=== PATIENT | female | born 1975 | race Caucasian/White ===

== ENCOUNTER 2016-09-19 10:21 | Emergency (ER) | payer MEDICAID ==
[2016-09-19 10:39] VITALS: BP 109/74
[2016-09-19] MEDS ORDERED: Proparacaine 0.5% Ophth Soln 15 ML Bottle EYELF ONE (10:59)
--- NOTE | 2016-09-19 11:16 | EDM.PDOC ---
[id number] EYE IS SORE Time Seen by Provider: 09/19/16 10:55 Source: Reports: Patient History Limitations: Reports: No limitations - History of Present Illness INITIAL COMMENTS - FREE TEXT/NARRATIVE: 41-year-old female with a left eye injury. She was doing something with her son ,s clothes when she accidentally struck her left eye with her thumb. This happened about an hour ago and she is very uncomfortable, can't open her left eye. No other injury complaints. She has an appointment at 2 PM [facility] but was too uncomfortable to wait. 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: - Infectious Disease History Infectious Disease History: Reports: Chicken pox Social & Family History - Tobacco Use Smoking Status *Q: Never Smoker Second Hand Smoke Exposure: No - Caffeine Use Caffeine Use: Reports: Coffee - Recreational Drug Use Recreational Drug Use: No ED ROS GENERAL - Review of Systems Review Of Systems: See Below Constitutional: Denies: fever, chills Respiratory: Denies: Shortness of Breath GI/Abdominal: Reports: No symptoms Skin: Reports: no symptoms Neurological: Reports: No Symptoms Psychiatric: Reports: No symptoms ED EXAM GENERAL W FULL EYE - Physical Exam Exam: See Below Exam Limited By: No limitations General Appearance: alert, mild distress Eyelids: bilateral: normal appearance Cornea Exam: left: corneal abrasion (Large corneal abrasion seen under fluorescein stain) Course - Vital Signs Last Recorded V/S: Last Vital Signs Temp 97.3 F 09/19/16 10:53 Pulse 75 09/19/16 10:53 Resp 14 09/19/16 10:53 BP 109/74 09/19/16 10:53 Pulse Ox 96 09/19/16 10:53 - Orders/Labs/Meds Meds: Medications Discontinued Medications Generic Name Dose Route Start Last Admin Trade Name Glenys PRN Reason Stop Dose Admin Proparacaine HCl 1 ml 09/19/16 10:59 09/19/16 11:26 Proparacaine 0.5% Ophth Soln EYELF 09/19/16 11:00 1 ml ONETIME ONE Administration - Re-Assessments/Exams Free Text/Narrative Re-Assessment/Exam: 09/19/16 11:18 The left eye was anesthetized with proparacaine which gave marked pain relief. Fluorescein staining revealed a large left corneal abrasion. Patient was sent directly over the eye clinic. Departure - Departure Time of Disposition: 11:27 Disposition: Home, Self-Care 01 Condition: good Clinical Impression: Corneal abrasion Qualifiers: Encounter type: initial encounter Laterality: left Qualified Code(s): S05.02XA - Injury of conjunctiva and corneal abrasion without foreign body, left eye, initial encounter Instructions: Corneal Abrasion, [id number] Referrals: Zohra Mijares CNM [Primary Care Provider] - Forms: ED Department Discharge Care Plan Goals: Go directly over to [facility] to finish your examination and treatment.
== END 2016-09-19 11:28 | disposition home or self-care (01) ==
LOC: JP.ED 10:21
DX: S05.02XA Injury of conjunctiva and corneal abrasion without foreign body, left eye, initial encounter (principal); Z79.899 Other long term (current) drug therapy; W22.8XXA Striking against or struck by other objects, initial encounter
CPT/HCPCS: 99283; A9270

== ENCOUNTER 2017-01-18 16:52 | Emergency (ER) | payer MEDICAID ==
[2017-01-18 17:09] VITALS: BP 119/78
[2017-01-18] MEDS ORDERED: Lidocaine 1% with EPINEPHrine 1:100,000 50 ML MDV SUBCUT STA (17:35)
--- NOTE | 2017-01-18 17:37 | EDM.PDOC ---
ED HPI GENERAL MEDICAL PROBLEM - General Chief Complaint: Gastrointestinal Problem Stated Complaint: VAGINAL BLEEDING Time Seen by Provider: 01/18/17 17:23 Source of Information: Reports: Patient, RN Notes Reviewed History Limitations: Reports: No Limitations - History of Present Illness INITIAL COMMENTS - FREE TEXT/NARRATIVE: 41-year-old female presents emergency department today with bright red blood per rectum, she states she does have a hemorrhoid that has been given her difficulty is really been painful and bleeding over the last couple days Rectal Pain Score (Numeric/FACES): 8 - Related Data Allergies Allergy/AdvReac Type Severity Reaction Status Date / Time No Known Allergies Allergy Verified 09/19/16 10:50 Home Meds: Home Meds Ibuprofen 2 tab PO ASDIRECTED 09/19/16 [History] 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 Social & Family History - Tobacco Use Smoking Status *Q: Never Smoker Second Hand Smoke Exposure: No - Caffeine Use Caffeine Use: Reports: Coffee - Recreational Drug Use Recreational Drug Use: No ED ROS GENERAL - Review of Systems Review Of Systems: See Below Constitutional: Reports: No Symptoms HEENT: Reports: No Symptoms Respiratory: Reports: No Symptoms Cardiovascular: Reports: No Symptoms GI/Abdominal: Reports: Bloody Stool : Reports: No Symptoms ED EXAM, GI/ABD - Physical Exam Exam: See Below Text/Narrative:: Examination of the rectum presence of nursing staff there is a large thrombosed hemorrhoid with bright red blood present located in the 3 o'clock position tender to the touch Exam Limited By: No Limitations General Appearance: Alert, WD/WN, No Apparent Distress Course - Vital Signs Last Recorded V/S: Last Vital Signs Temp 98.1 F 01/18/17 17:18 Pulse 93 01/18/17 17:18 Resp 16 01/18/17 17:18 BP 119/78 01/18/17 17:18 Pulse Ox 97 01/18/17 17:18 - Orders/Labs/Meds Meds: Medications Discontinued Medications Generic Name Dose Route Start Last Admin Trade Name Freq PRN Reason Stop Dose Admin Lidocaine/Epinephrine 20 ml 01/18/17 17:35 Xylocaine 1% With Epinephrine 1:100,000 SUBCUT 01/18/17 17:36 NOW STA Povidone Iodine Confirm 01/18/17 18:07 Betadine 10% Soln Administered 01/18/17 18:08 Dose 1 ml .ROUTE .STK-MED ONE Departure - Departure Time of Disposition: 19:11 Disposition: Home, Self-Care 01 Condition: Good Clinical Impression: Thrombosed hemorrhoids - Discharge Information Referrals: Zohra Mijares CNM [Primary Care Provider] - Forms: ED Department Discharge Additional Instructions: Follow-up instructions per surgery - Assessment/Plan Plan: Assessment Acuity = acute Site and laterality = thrombosed hemorrhoid Etiology = unclear etiology Manifestations = blood per stool Location of injury = Home Lab values = none Plan Consult with Dr. Landry general surgery kindly agreed to, and evaluate the patient in the emergency department for further treatment Patient was in agreement with the plan all questions were answered, they were instructed to return to the emergency department or call for worsening symptoms. This note was dictated using Wi3 voice recognition software please call with any questions.
[2017-01-18] MEDS ORDERED: Povidone-Iodine 10% Soln 118.25 ML Bottle ONE (18:07)
[2017-01-18] MEDS ORDERED: Povidone-Iodine 10% Soln 118.25 ML Bottle TOP SCH (18:15)
--- NOTE | 2017-01-19 08:32 | OR ---
DATE OF PROCEDURE: 01/18/2017 PREPROCEDURE DIAGNOSIS: Thrombosed hemorrhoid. POSTPROCEDURE DIAGNOSIS: Thrombosed hemorrhoid. PROCEDURE: Excision of thrombosed hemorrhoid. SURGEON: Nickolas Alvarado MD. ANESTHESIA: Lidocaine 1% with epinephrine local. INDICATION: This 41-year-old white female complains of a painful tender anal mass for a few days with some bleeding. She presents to the emergency room requesting something be done about it. She has an obvious thrombosed hemorrhoid on the right side of her anus. I counseled her for excision of this external thrombosed hemorrhoid including risks and alternatives and she gave her informed consent to proceed. DESCRIPTION OF PROCEDURE: The patient was placed in a jackknife position. Her anal and perianal area were prepped and draped in the usual sterile fashion. Lidocaine 1% with epinephrine was infiltrated about the thrombosed hemorrhoid. A radial elliptical incision was made removing the thrombosed hemorrhoid. We removed the associated vein. We explored the area and found no additional thrombosed tissue. The incision was then covered with gauze, and she was released from the emergency room. [place] 5/325, 1 to 2 q.4 hours p.r.n. pain, dispensed 30, was prescribed. She was also told to get a stool softener. She is to use a sitz bath twice a day. Literature was given to her. I want to see her in 2 days in the clinic. Nickolas Alvarado MD /[id number] [facility]
== END 2017-01-18 18:55 | disposition home or self-care (01) ==
LOC: JP.ED 16:52
DX: K64.5 Perianal venous thrombosis (principal)
CPT/HCPCS: 88304; 99283

== ENCOUNTER 2022-01-23 10:23 | Emergency (ER) | payer MEDICAID ==
[2022-01-23 10:55] VITALS: BP 121/77; PULSE 62
== END 2022-01-23 11:19 | disposition home or self-care (01) ==
LOC: JP.ED 10:23
DX: N30.01 Acute cystitis with hematuria (principal); Z79.899 Other long term (current) drug therapy
CPT/HCPCS: 81001; 87086; 87088; 87186; 99283